=== PATIENT | male | born 1965 | race Native Hawaiian/Other Pacific Islander ===

== ENCOUNTER 2019-05-26 12:49 | Inpatient (IN) | payer OTHER ==
[~2019-05-26] VITALS: Ht 175.3 cm; Wt 147.9 kg
[2019-05-26 13:15] LABS: BASOPHIL % 0.3 % (0-2)
[2019-05-26 13:19] LABS: PLATELET COUNT 119 x10^3mcL (130-400); RED CELL DISTRIBUTION WIDTH 15.8 % (11.5-14.5)
[2019-05-26 13:31] LABS: CALCIUM 9.4 mg/dL (8.5-10.1); CARBON DIOXIDE 23.6 mmol/L (21-32); CREATININE SERUM 1.6 mg/dL (0.7-1.3); POTASSIUM SERUM 4.5 mmol/L (3.5-5.1)
[2019-05-26 13:35] LABS: ALBUMIN 3.4 g/dL (3.4-5.0); BILIRUBIN TOTAL 2.19 mg/dL (0.20-1.00); TOTAL PROTEIN, SERUM 6.2 g/dL (6.4-8.2)
[2019-05-26 15:50] VITALS: BP 111/45
[2019-05-26 19:40] VITALS: BP 123/90
[2019-05-26 23:29] VITALS: BP 119/62
[2019-05-27 03:40] VITALS: BP 108/89
[2019-05-27 05:44] LABS: PLATELET COUNT 106 x10^3mcL (130-400); RED CELL DISTRIBUTION WIDTH 16.1 % (11.5-14.5)
[2019-05-27 05:50] LABS: FREE T4 1.29 ng/dL (0.76-1.46); PHOSPHOROUS 6.8 mg/dL (2.5-4.9)
[2019-05-27 06:06] LABS: ATYPICAL LYMPH 1 %; BAND NEUTROPHIL 1 % (0-10); MONOCYTE 10 % (0-7); SEGMENTED NEUTROPHILS 69 % (37-75); rbc morphology (normal/abnorm) ABNORMAL (NORMAL)
[2019-05-27 06:07] LABS: PLATELET MORPHOLOGY PLATELETS DECREASED; tear drop cell (dacryocyte) 1+
[2019-05-27 07:51] VITALS: Ht 175.3 cm; Wt 147.9 kg
[2019-05-27 08:06] LABS: CHOLESTEROL/HDL RATIO 5.7
[2019-05-27 08:25] VITALS: BP 150/82
[2019-05-27 08:28] LABS: BILIRUBIN TOTAL 1.54 mg/dL (0.20-1.00); CALCIUM 8.8 mg/dL (8.5-10.1); CARBON DIOXIDE 21.7 mmol/L (21-32); CREATININE SERUM 1.8 mg/dL (0.7-1.3); POTASSIUM SERUM 5.4 mmol/L (3.5-5.1)
[2019-05-27 08:30] LABS: ALBUMIN 3.1 g/dL (3.4-5.0); TOTAL PROTEIN, SERUM 5.8 g/dL (6.4-8.2)
[2019-05-27 10:25] VITALS: BP 86/56
[2019-05-27 15:57] VITALS: BP 110/75
[2019-05-27 20:55] VITALS: BP 107/73
[2019-05-28 04:57] VITALS: BP 120/80
[2019-05-28 06:41] LABS: BASOPHIL % 0.6 % (0-2)
[2019-05-28 06:43] LABS: BILIRUBIN TOTAL 1.4 mg/dL (0.20-1.00); CALCIUM 8.2 mg/dL (8.5-10.1); CREATININE SERUM 1.5 mg/dL (0.7-1.3); MAGNESIUM 1.9 mg/dL (1.8-2.4); POTASSIUM SERUM 4.1 mmol/L (3.5-5.1)
[2019-05-28 06:44] LABS: ALBUMIN 2.9 g/dL (3.4-5.0); TOTAL PROTEIN, SERUM 5.4 g/dL (6.4-8.2)
[2019-05-28 07:09] LABS: PLATELET COUNT 110 x10^3mcL (130-400); RED CELL DISTRIBUTION WIDTH 16.2 % (11.5-14.5)
[2019-05-28 08:33] VITALS: BP 120/70
[2019-05-28 12:12] VITALS: BP 93/55
[2019-05-28 17:21] VITALS: BP 96/75
[2019-05-28 20:16] VITALS: BP 111/77
[2019-05-29] VITALS (7 sets, daily range): BP systolic 96–128; BP diastolic 68–90
[2019-05-29 06:43] LABS: PLATELET COUNT 96 x10^3mcL (130-400); RED CELL DISTRIBUTION WIDTH 15.7 % (11.5-14.5)
[2019-05-29 06:47] LABS: CALCIUM 8.2 mg/dL (8.5-10.1); CARBON DIOXIDE 29.7 mmol/L (21-32); CHLORIDE SERUM 109 mmol/L (98-107); CREATININE SERUM 1.2 mg/dL (0.7-1.3); GFR1 > 60 mL/min; GLUCOSE SERUM 85 mg/dL (74-106); POTASSIUM SERUM 3.7 mmol/L (3.5-5.1); SODIUM SERUM 147 mmol/L (136-145)
[2019-05-29 07:02] LABS: ALKALINE PHOSPHATASE 68 U/L (46-116); ALT/SGPT 92 U/L (16-63); AST/SGOT 58 U/L (15-37); BILIRUBIN TOTAL 0.95 mg/dL (0.20-1.00); PHOSPHOROUS 4.3 mg/dL (2.5-4.9)
[2019-05-29 07:20] LABS: ALBUMIN 2.7 g/dL (3.4-5.0); TOTAL PROTEIN, SERUM 5.2 g/dL (6.4-8.2)
[2019-05-29] MEDS ORDERED: DIG125 PO (08:38)
[2019-05-29] MEDS ORDERED: COR200 PO (08:38)
[2019-05-29] MEDS ORDERED: APR10 PO (08:39)
[2019-05-29] MEDS ORDERED: L20 PO (08:39)
[2019-05-29] MEDS ORDERED: COR6 PO (08:39)
[2019-05-29 14:23] LABS: ATYPICAL LYMPH 0 %; BAND NEUTROPHIL 0 % (0-10); BASOPHIL 0 % (0-2); MONOCYTE 14 % (0-7); SEGMENTED NEUTROPHILS 74 % (37-75); rbc morphology (normal/abnorm) ABNORMAL (NORMAL)
[2019-05-29 14:24] LABS: PLATELET MORPHOLOGY PLATELETS DECREASED
[2019-05-30] VITALS (7 sets, daily range): BP systolic 110–130; BP diastolic 88–93
[2019-05-30 07:23] LABS: BASOPHIL % 0.5 % (0-2)
[2019-05-30 07:33] LABS: PLATELET COUNT 96 x10^3mcL (130-400); RED CELL DISTRIBUTION WIDTH 16.2 % (11.5-14.5)
[2019-05-30 07:46] LABS: CARBON DIOXIDE 34.1 mmol/L (21-32); CHLORIDE SERUM 109 mmol/L (98-107); CREATININE SERUM 1.2 mg/dL (0.7-1.3); GFR1 > 60 mL/min; GLUCOSE SERUM 85 mg/dL (74-106); PHOSPHOROUS 4.2 mg/dL (2.5-4.9); POTASSIUM SERUM 3.7 mmol/L (3.5-5.1); SODIUM SERUM 147 mmol/L (136-145)
== END 2019-05-30 18:07 | disposition home or self-care (01) | DRG 291 ==
LOC: ED 12:49 → DU 14:38 → IC 14:38 → DU 05-27 10:15
PROVIDERS: Emergency Medicine; Internal Medicine Cardiovascular Disease; Internal Medicine Nephrology; Internal Medicine Pulmonary Disease; ADMIT Internal Medicine Pulmonary Disease
PROC: 5A09357 Assistance with Respiratory Ventilation, Less than 24 Consecutive Hours, Continuous Positive Airway Pressure (ICD-10-PCS; principal; 2019-05-26)
DX: I13.0 Hypertensive heart and chronic kidney disease with heart failure and stage 1 through stage 4 chronic kidney disease, or unspecified chronic kidney disease (principal); I50.41 Acute combined systolic (congestive) and diastolic (congestive) heart failure; N17.0 Acute kidney failure with tubular necrosis; Z68.42 Body mass index [BMI] 45.0-49.9, adult; E87.5 Hyperkalemia; C61 Malignant neoplasm of prostate; I48.91 Unspecified atrial fibrillation; I49.3 Ventricular premature depolarization; N18.3 Chronic kidney disease, stage 3 (moderate); G47.33 Obstructive sleep apnea (adult) (pediatric); E66.01 Morbid (severe) obesity due to excess calories; E78.5 Hyperlipidemia, unspecified; I25.5 Ischemic cardiomyopathy; Z86.73 Personal history of transient ischemic attack (TIA), and cerebral infarction without residual deficits; Z79.899 Other long term (current) drug therapy
CPT/HCPCS: 83880; 84439; A9500; G0378; J1160; J1650; J1940; J2405; J2785; J2930; J3475; J3490; J7030; Q0092